=== PATIENT | female | born 1965 | race Caucasian/White ===

== ENCOUNTER → 2018-11-04 | Outpatient (CLI) | payer SELFPAY ==
--- NOTE | 2018-11-04 14:30 | EMB_PTH ---
PATIENT: KAYCEE WATSON LOC: [facility] U#:[id number] AGE/SX: 53/F ROOM: RE11/04/[address]: Dr. Bharat Reyes MD : 1965 BED: DIS: 11/04/2018 SPEC #: [id number] RECD: 11/04/18 16:50 STATUS: BHAVIN RESuly #: [id number] SHADY: 11/04/18 14:[address]: Bharat Reyes DEPT: SURGICAL PATHOLOGY RECD BY: Torsten Rios Tissues: Endometrium, NOS Procedures: Surgery Specimen Level IV Comments: @ Originally on account #[id number] Req #[id number] HEADER OPERATION: Endometrial biopsy PRE-OP DIAGNOSIS: N95.0 TISSUE SUBMITTED: Endometrial biopsy MICROSCOPIC DIAGNOSIS Endometrium, biopsy: Scant strips of benign superficial endometrium. Rare fragments of benign superficial endocervix. AM:jordan 11/08/18 MICROSCOPIC DESCRIPTION Slides are reviewed. GROSS DESCRIPTION Received in fixative is one container labeled with the patient's name and designated EM biopsy. The specimen consists of multiple irregular fragments of martinez mucoid tissue that in aggregate measure 1.5 x 0.5 x 0.1 cm. The specimen is totally submitted in one cassette. / SJ:jordan 11/05/18 TC:5 CPT: [id number]
[2018-11-09 15:48] LABS: HPV Reflexed? NOT INDICATED
== END | disposition home or self-care (01) ==
LOC: LABSPEC 17:12
PROVIDERS: Visit Provider Obstetrics & Gynecology
DX: Z12.4 Encounter for screening for malignant neoplasm of cervix (principal)
CPT/HCPCS: 87624; 88175; 88305; G0145

== ENCOUNTER → 2018-11-04 | Outpatient (CLI) | payer SELFPAY | END | disposition home or self-care (01) | PROVIDERS: Referring Provider Obstetrics & Gynecology; Visit Provider Obstetrics & Gynecology | DX: N95.0 Postmenopausal bleeding (principal) | CPT/HCPCS: 88305 ==